=== PATIENT | male | born 1990 | race Caucasian/White ===

== ENCOUNTER 2016-07-24 10:34 | Emergency (ER) | payer MEDICARE, OTHER ==
[2016-01-13 17:28] VITALS: BP 117/97
[2016-07-24] MEDS ORDERED: ONDANSETRON HCL 4 MG TAB.RAPDIS PO ONE (12:13)
--- NOTE | 2016-07-24 12:51 | ED Physician Documentation ---
Nausea/Vomiting/Diarrhea - HISTORIAN Historian: patient, parent - HPI Stated Complaint: vomiting Chief Complaint: Nausea,Vomiting,Diarrhea Onset: hours (3) Duration: none Severity: mild Further Comments: yes (26 yo male presents with mom with c/o emesis X 1 of his anti-seizure medication. Pt is afebrile. has been acting WNL. NO emesis since this morning. No perceived abdominal pain per mom) - Associated Symptoms Vomiting: mild - ROS CONST: none - PAST HX Past History: other (cerebral palsy) Other History: other (ASMY) Allergies/Adverse Reactions: Allergies Allergy/AdvReac Type Severity Reaction Status Date / Time latex Allergy Verified 07/24/16 11:27 Home Medications: Ambulatory Orders Medication Instructions Recorded Albuterol Sulfate [Proair 90 mcg IH PRN PRN 01/13/16 Respiclick] Clobazam [Onfi] 4 ml PO BID 01/13/16 Diazepam [Diazepam] 10 mg AL PRN 01/13/16 Lacosamide [Vimpat] 15 ml PO HS 01/13/16 Lacosamide [Vimpat] 20 ml PO [id number] 01/13/16 Polyethylene Glycol 3350 [Miralax] 17 gm PO DAILY 01/13/16 Ondansetron HCl Rapdis [Zofran Odt] 4 mg PO Q8 #15 tab 07/24/16 - SOCIAL HX Smoking History: non-smoker - FAMILY HX Family History: none - VITAL SIGNS Vital Signs: Vital Signs Temp Pulse Resp BP Pulse Ox 98.7 F 98 H 16 117/97 99 07/24/16 11:23 07/24/16 11:23 07/24/16 11:23 01/13/16 18:05 07/24/16 11:23 - REVIEWED ASSESSMENTS Nursing Assessment Reviewed: Yes Vitals Reviewed: Yes Progress - Progress Progress: Pt given Zofran ODT, tolerated well. Given anti-seizure medication and no further emesis appreciated ED Results Lab/Radiology - Orders Orders: ED Orders Category Date Time Status Ondansetron HCl Rapdis [Zofran Odt] Med 07/24/16 12:13 Discontinued 4 mg PO NOW ONE Nausea Physical Exam - EXAM General Appearance: no acute distress, alert EENT: eye inspection normal, ENT inspection normal, ANGELITA Neck: normal inspection Respiratory: no resp distress CVS: reg rate & rhythm, heart sounds normal Abdomen: non-tender Pelvic Exam: normal external exam Neuro/Psych: oriented X3, CN's nml as tested Discharge Clincal Impression: Gastroenteritis Additional Instructions: May use Zofran as needed for nausea/vomting Clear liquid diet today, advance as tolerated Home Medications: Ambulatory Orders Albuterol Sulfate [Proair Respiclick] 90 mcg IH PRN PRN 01/13/16 Clobazam [Onfi] 4 ml PO BID 01/13/16 Diazepam [Diazepam] 10 mg AL PRN 01/13/16 Lacosamide [Vimpat] 15 ml PO HS 01/13/16 Lacosamide [Vimpat] 20 ml PO [id number] 01/13/16 Polyethylene Glycol 3350 [Miralax] 17 gm PO DAILY 01/13/16 Ondansetron HCl Rapdis [Zofran Odt] 4 mg PO Q8 #15 tab 07/24/16 Condition: Good Disposition: 01 HOME, SELF-CARE Decision to Admit: NO Decision Time: 12:55
== END 2016-07-24 13:30 | disposition home or self-care (01) ==
LOC: ED 10:34
DX: K52.9 Noninfective gastroenteritis and colitis, unspecified (principal)
CPT/HCPCS: 99282; A9270

== ENCOUNTER 2018-06-07 07:30 | Outpatient (CLI) | payer OTHER ==
[2016-01-13 17:28] VITALS: BP 117/97
== END 2018-06-07 07:32 ==
LOC: LAB 07:30
PROVIDERS: ATTEND Psychiatry & Neurology Epilepsy
DX: Z51.81 Encounter for therapeutic drug level monitoring (principal)
CPT/HCPCS: 36415